=== PATIENT | female | born 1975 | race Caucasian/White ===

== ENCOUNTER 2018-02-13 08:44 | Inpatient (IN) | payer MEDICAID ==
[2018-02-13] MEDS ORDERED: CARBOPROST 250 MCG INJ IM ×2 (10:00→21:00)
[2018-02-13] MEDS ORDERED: OXYTOCIN 30 UNITS/LR 500 ML IV ×2 (10:00→21:00)
[2018-02-13] MEDS ORDERED: MISOPROSTOL 200 MCG TAB PR ×2 (10:00→21:00)
[2018-02-13] MEDS ORDERED: CEFAZOLIN 2 GM/50 ML (PMX) 50 ML IV (10:00)
[2018-02-13] MEDS ORDERED: METHYLERGONOVINE 0.2 MG INJ IM ×2 (10:00→21:00)
[2018-02-13] MEDS: LACTATED RINGER'S 1,000 ML IV ×2 (10:57→15:15)
[2018-02-13 11:27] LABS: ADD MAN DIFF? NO
[2018-02-13 11:35] LABS: WHITE BLOOD COUNT 9.1 10^3/ul (4.8-10.8)
[2018-02-13 11:35] LABS: BASOPHILS % 0.3 % (0.0-2.0); EOSINOPHILS # 0.1 10^3/ul (0.0-0.5); EOSINOPHILS % 0.5 % (0.0-7.0); HEMATOCRIT 37.8 % (37.0-47.0); HEMOGLOBIN 12.9 g/dl (12.0-16.0); LYMPHOCYTES # 1.8 10^3/ul (0.8-2.9); LYMPHOCYTES % 19.7 % (15.0-51.0); MEAN CORPUSCULAR HEMOGLOBIN 32.3 pg (29.0-33.0); MEAN CORPUSCULAR HGB CONC 34.1 g/dl (32.0-37.0); MEAN CORPUSCULAR VOLUME 94.7 fl (82.0-101.0); MEAN PLATELET VOLUME 10.2 fl (7.4-10.4); MONOCYTE # 0.7 10^3/ul (0.3-0.9); MONOCYTES % 7.9 % (0.0-11.0); NEUTROPHIL # 6.5 10^3/ul (1.6-7.5); NEUTROPHILS % 70.9 % (39.0-77.0); PLATELET COUNT 203 10^3/UL (140-415); RED BLOOD COUNT 3.99 10^6/ul (4.20-5.40); RED CELL DISTRIBUTION WIDTH 13.2 % (11.5-14.5)
[2018-02-13 11:54] LABS: INR 0.92; PROTIME 12.4 Sec (11.9-14.9)
[2018-02-13 11:55] LABS: PARTIAL THROMBOPLASTIN TIME 29.3 Sec (25.0-35.0)
[2018-02-13] MEDS: TERBUTALINE 1 MG/ML INJ SC (12:59)
[2018-02-13 14:32] LABS: HEPATITIS B SURFACE ANTIGEN NEGATIVE (NEGATIVE)
[2018-02-13] MEDS: ONDANSETRON 4 MG INJ IV (15:09)
[2018-02-13] MEDS: METOCLOPRAMIDE 10 MG INJ IV (15:09)
[2018-02-13] MEDS: FAMOTIDINE 20 MG INJ IV (15:09)
[2018-02-13] MEDS ORDERED: DIPHENHYDRAMINE 50 MG INJ IV ×2 (17:00)
[2018-02-13] MEDS ORDERED: NALOXONE (0.4 MG/ML) INJ IV ×2 (17:00)
[2018-02-13] MEDS ORDERED: ONDANSETRON 4 MG INJ IV ×2 (17:00)
[2018-02-13] MEDS ORDERED: HYDROmorphONE 0.5 MG/0.5 ML SYG IV ×4 (17:00)
[2018-02-13] MEDS ORDERED: ZOLPIDEM 5 MG TAB PO (17:00)
[2018-02-13] MEDS: OXYTOCIN 30 UNITS/LR 500 ML IV ×3 (18:18→23:59)
[2018-02-13 18:53] LABS: RAPID PLASMA REAGIN NONREACTIVE (NR)
[2018-02-13] MEDS: KETOROLAC 30 MG INJ IV (19:34)
[2018-02-13] MEDS: CEFAZOLIN 1 GM/50 ML (PMX) 50 ML IVPB (21:00)
[2018-02-13] MEDS ORDERED: HYDROCODONE/APAP (5/325) TAB PO ×2 (21:00)
[2018-02-13] MEDS: SENNA/DOCUSATE NA (8.6MG/50MG) TAB PO (21:00)
[2018-02-13] MEDS: LANOLIN 7 GM TUBE TOP (22:24)
[2018-02-14] MEDS: KETOROLAC 30 MG INJ IV ×2 (02:36→12:54)
[2018-02-14] MEDS: OXYTOCIN 30 UNITS/LR 500 ML IV ×5 (03:45→20:32)
[2018-02-14] MEDS: LACTATED RINGER'S 1,000 ML IV ×3 (08:17→23:00)
[2018-02-14 08:59] LABS: ADD MAN DIFF? NO
[2018-02-14] MEDS: SENNA/DOCUSATE NA (8.6MG/50MG) TAB PO ×2 (09:00→20:45)
[2018-02-14 09:08] LABS: WHITE BLOOD COUNT 10.8 10^3/ul (4.8-10.8)
[2018-02-14 09:08] LABS: BASOPHILS % 0.2 % (0.0-2.0); EOSINOPHILS % 0.1 % (0.0-7.0); HEMATOCRIT 30.9 % (37.0-47.0); HEMOGLOBIN 10.2 g/dl (12.0-16.0); LYMPHOCYTES # 1.3 10^3/ul (0.8-2.9); MEAN CORPUSCULAR HEMOGLOBIN 31.7 pg (29.0-33.0); MONOCYTE # 0.8 10^3/ul (0.3-0.9); NEUTROPHIL # 8.7 10^3/ul (1.6-7.5); NEUTROPHILS % 80.1 % (39.0-77.0); PLATELET COUNT 152 10^3/UL (140-415); RED BLOOD COUNT 3.22 10^6/ul (4.20-5.40); RED CELL DISTRIBUTION WIDTH 13.7 % (11.5-14.5)
[2018-02-14] MEDS: IBUPROFEN 600 MG TAB PO ×2 (17:35→23:29)
[2018-02-15] MEDS: OXYTOCIN 30 UNITS/LR 500 ML IV ×6 (00:32→20:32)
[2018-02-15] MEDS: IBUPROFEN 600 MG TAB PO ×3 (05:43→17:38)
[2018-02-15] MEDS: OXYCODONE/ACETAMINOPHEN (5/325) TAB PO ×2 (08:58→16:42)
[2018-02-15] MEDS: SENNA/DOCUSATE NA (8.6MG/50MG) TAB PO ×2 (08:58→21:54)
[2018-02-15] MEDS: LACTATED RINGER'S 1,000 ML IV ×3 (13:02→23:00)
[2018-02-15] MEDS: NA PHOSPHATE/BIPHOS 133 ML ENEMA PR (16:36)
[2018-02-16] MEDS: IBUPROFEN 600 MG TAB PO ×3 (00:08→12:19)
[2018-02-16] MEDS: OXYTOCIN 30 UNITS/LR 500 ML IV ×3 (00:32→08:32)
[2018-02-16] MEDS: LACTATED RINGER'S 1,000 ML IV (07:00)
[2018-02-16] MEDS: SENNA/DOCUSATE NA (8.6MG/50MG) TAB PO (08:45)
[2018-02-16] MEDS: OXYCODONE/ACETAMINOPHEN (5/325) TAB PO (08:46)
[2018-02-16] MEDS: DIPHTH/TET/ACEL PERTUSS (ADULT) 0.5 ML VIAL IM* (09:00)
[2018-02-16] MEDS ORDERED: OXYTOCIN 10 UNIT INJ (22:25)
[2018-02-16] MEDS ORDERED: morphine SULFATE/PF (10 MG/10 ML) INJ (22:25)
[2018-02-16] MEDS ORDERED: OXYTOCIN 30 UNITS/LR 500 ML IV (22:25)
[2018-02-16] MEDS ORDERED: FENTAnyl 50 MCG/ML VIAL (22:25)
[2018-02-16] MEDS ORDERED: BUPIVACAINE 0.75%/DEXT (SPINAL) 2 ML INJ (22:25)
== END 2018-02-16 12:45 | disposition home or self-care (01) | DRG 766 ==
LOC: OBT 08:44 → L-D 08:45 → OBT 09:52 → L-D 09:52 → PP1 20:16
PROVIDERS: Obstetrics & Gynecology
PROC: 10D00Z1 Extraction of Products of Conception, Low, Open Approach (ICD-10-PCS; principal; 2018-02-16)
PROC: 0UB70ZZ Excision of Bilateral Fallopian Tubes, Open Approach (ICD-10-PCS; 2018-02-16)
DX: O35.8XX0 Maternal care for other (suspected) fetal abnormality and damage, not applicable or unspecified (principal); Z3A.37 37 weeks gestation of pregnancy; Z37.0 Single live birth; Z30.2 Encounter for sterilization
CPT/HCPCS: 82962; 85025; 85610; 85730; 86592; 86850; 86900; 86901; 87340; 88302; 88307; 99464